=== PATIENT | male | born 1990 | race Caucasian/White ===

== ENCOUNTER 2021-06-05 12:23 | Emergency (ER) | payer OTHER ==
[~2021-06-05] VITALS: Ht 188 cm; Wt 100.0 kg
[2021-06-05 12:33] VITALS: BP 133/70
== END 2021-06-05 13:18 | disposition home or self-care (01) ==
LOC: EMS 12:28
DX: Z20.822 Contact with and (suspected) exposure to COVID-19 (principal)
CPT/HCPCS: 99283; U0003

== ENCOUNTER 2021-06-10 10:13 | Emergency (ER) | payer OTHER ==
[~2021-06-10] VITALS: Ht 172.7 cm; Wt 90.9 kg
[2021-06-10 10:41] VITALS: BP 126/83
[2021-06-10 11:23] LABS: COVID AG,FIA SOURCE NASOPHARYNGEAL
== END 2021-06-10 14:33 | disposition home or self-care (01) ==
LOC: EMS 10:21
DX: Z20.822 Contact with and (suspected) exposure to COVID-19 (principal)
CPT/HCPCS: 99283